=== PATIENT | female | born 1990 ===

== ENCOUNTER 2018-07-17 14:23 | Emergency (ER) | payer OTHER ==
[2018-07-17 14:37] VITALS: BP 152/91
--- NOTE | 2018-07-17 14:57 | UC ---
Respiratory Complaint HPI - HPI Summary HPI Summary: The patient is a 27-year-old female that is been ill for about 4 days. She initially started with nasal congestion and facial pressure and pain, as well as postnasal drip. In the past 24 hour she has developed a fever as well as headache and myalgias. Denies any chest pain or shortness of breath. Denies any earache. - History of Current Complaint Chief Complaint: UCRespiratory Stated Complaint: CONGESTION,FEVER Time Seen by Provider: 07/17/18 14:39 Hx Obtained From: Patient Hx Last Menstrual Period: 07/17/18 Onset/Duration: Gradual Onset, Lasting Days Timing: Constant Severity Initially: Mild Severity Currently: Moderate Pain Intensity: 4 Pain Scale Used: 0-10 Numeric Character: Cough: Nonproductive Alleviating Factors: Nothing Associated Signs And Symptoms: Positive: Fever, Chills, URI, Nasal Congestion, Sinus Discomfort - Allergies/Home Medications Allergies/Adverse Reactions: Allergies Allergy/AdvReac Type Severity Reaction Status Date / Time cefuroxime [From Ceftin] Allergy Mild Rash Verified 07/17/18 14:37 PMH/Surg Hx/FS Hx/Imm Hx Previously Healthy: Yes Respiratory History: Pneumonia - Family History Known Family History: Negative: Cardiac Disease, Hypertension, Diabetes - Social History Alcohol Use: None Substance Use Type: None Smoking Status (MU): Never Smoked Tobacco Review of Systems All Other Systems Reviewed And Are Negative: Yes Constitutional: Positive: Fever, Chills, Fatigue Skin: Positive: Negative Eyes: Positive: Negative ENT: Positive: Ear Ache, Nasal Discharge, Sinus Congestion, Sinus Pain/ Tenderness Respiratory: Positive: Cough Cardiovascular: Positive: Negative Gastrointestinal: Positive: Negative Genitourinary: Positive: Negative Motor: Positive: Negative Neurovascular: Positive: Negative Musculoskeletal: Positive: Negative Neurological: Positive: Negative Psychological: Positive: Negative Physical Exam Triage Information Reviewed: Yes Appearance: Well-Appearing, No Pain Distress, Well-Nourished Vital Signs: Initial Vital Signs Temp 99.4 F 07/17/18 14:29 Pulse 96 07/17/18 14:29 Resp 16 07/17/18 14:29 BP 152/91 07/17/18 14:29 Pulse Ox 100 07/17/18 14:29 Vital Signs Reviewed: Yes Eyes: Positive: Conjunctiva Clear ENT: Positive: Hearing grossly normal, Pharyngeal erythema, Sinus tenderness, Uvula midline. Negative: Nasal congestion, Nasal drainage, Tonsillar swelling, Trismus, Muffled voice, Hoarse voice Neck: Positive: Supple, Nontender, No Lymphadenopathy Respiratory: Positive: Lungs clear, Normal breath sounds, No respiratory distress, No accessory muscle use Cardiovascular: Positive: RRR, No Murmur Bowel Sounds: Positive: Present Musculoskeletal: Positive: ROM Intact, No Edema Neurological: Positive: Alert Psychological Exam: Normal Skin Exam: Normal UC Diagnostic Evaluation - Laboratory O2 Sat by Pulse Oximetry: 100 - normal/not hypoxic Diagnostic Studies Comment: influenza (-) Respiratory Course/Dx - Differential Dx/Diagnosis Provider Diagnosis: Acute sinusitis Discharge - Sign-Out/Discharge Documenting (check all that apply): Patient Departure All imaging exams completed and their final reports reviewed: No Studies - Discharge Plan Condition: Stable Disposition: HOME Patient Education Materials: Sinusitis (ED) Referrals: No Primary Care Phys,NOPCP [Primary Care Provider] - - Billing Disposition and Condition Condition: STABLE Disposition: Home
[2018-07-17 15:06] LABS: Influenza A Molecular NEGATIVE (Negative); Influenza B Molecular NEGATIVE (Negative)
== END 2018-07-17 15:20 | disposition home or self-care (01) ==
LOC: UCEAST 14:23
DX: J01.90 Acute sinusitis, unspecified (principal); Z88.1 Allergy status to other antibiotic agents
CPT/HCPCS: 99202; G0463

== ENCOUNTER 2018-09-13 16:20 | Emergency (ER) | payer OTHER ==
[2018-09-13 16:30] VITALS: BP 124/77
--- NOTE | 2018-09-13 16:43 | ED ---
Throat Pain/Nasal Congestion - HPI Summary HPI Summary: 28-year-old female presents with sore throat for the past couple days. She admits to sinus congestion and ear pressure and headache. She notes occasional cough. No nausea vomiting. No abdominal pain. No chest pain or shortness breath. She has a history of strep. Has no medical conditions. Has been taking ibuprofen for fevers. She states occasional fever. - History of Current Complaint Chief Complaint: UCRespiratory Time Seen by Provider: 09/13/18 16:33 - Allergies/Home Medications Allergies/Adverse Reactions: Allergies Allergy/AdvReac Type Severity Reaction Status Date / Time cefuroxime [From Ceftin] Allergy Mild Rash Verified 09/13/18 16:30 Home Medications: Home Medications Ibuprofen [Advil] 400 mg PO ONCE PRN 09/13/18 [History Confirmed 09/13/18] guaiFENesin [Mucinex] 1,200 mg PO ONCE PRN 09/13/18 [History Confirmed 09/13/18] PMH/Surg Hx/FS Hx/Imm Hx Endocrine/Hematology History: Denies: Hx Anticoagulant Therapy Respiratory History: Denies: Hx Asthma Infectious Disease History: No Infectious Disease History: Denies: Traveled Outside the [place] in Last 30 Days - Family History Known Family History: Negative: Cardiac Disease, Hypertension, Diabetes - Social History Alcohol Use: None Substance Use Type: Reports: None Smoking Status (MU): Never Smoked Tobacco Review of Systems Positive: Fever Positive: Sore Throat, Ear Ache, Nasal Discharge Negative: Chest Pain Negative: Shortness Of Breath, Cough Negative: Abdominal Pain All Other Systems Reviewed And Are Negative: Yes Physical Exam Triage Information Reviewed: Yes Vital Signs On Initial Exam: Initial Vitals Temp Pulse Resp BP Pulse Ox 98.7 F 105 18 124/77 100 09/13/18 16:27 09/13/18 16:27 09/13/18 16:27 09/13/18 16:27 09/13/18 16:27 Vital Signs Reviewed: Yes Appearance: Positive: Well-Appearing Skin: Positive: Warm, Dry Head/Face: Positive: Normal Head/Face Inspection Eyes: Positive: Normal, Conjunctiva Clear ENT: Positive: Normal ENT inspection, Pharyngeal erythema, TMs normal, Trismus, Muffled voice, Uvula midline, Other - soft pallate symmetric. Negative: Tonsillar swelling, Tonsillar exudate Respiratory/Lung Sounds: Positive: Clear to Auscultation, Breath Sounds Present Cardiovascular: Positive: Normal, RRR Abdomen Description: Positive: Nontender, Soft Bowel Sounds: Positive: Present Musculoskeletal: Positive: Normal Neurological: Positive: Normal Psychiatric: Positive: Normal Diagnostics - Vital Signs Vital Signs Temp Pulse Resp BP Pulse Ox 09/13/18 16:27 98.7 F 105 18 124/77 100 - Laboratory Lab Statement: Any lab studies that have been ordered have been reviewed, and results considered in the medical decision making process. EENT Course/Dx - Course Course Of Treatment: 28-year-old female presents with sore throat for the past couple days. She admits to sinus congestion and ear pressure and headache. She notes occasional cough. No nausea vomiting. No abdominal pain. No chest pain or shortness breath. She has a history of strep. Has no medical conditions. Has been taking ibuprofen for fevers. She states occasional fever. On exam pharynx erythematous. Uvula midline. Soft palate symmetric. Strep negative. We'll treat supportively with steriod. Patient understands agrees plan. - Differential Diagnoses Differential Diagnoses: Pharyngitis, Tonsilitis, URI/Bronchitis - Diagnoses Provider Diagnoses: Pharyngitis Discharge - Sign-Out/Discharge Documenting (check all that apply): Patient Departure All imaging exams completed and their final reports reviewed: No Studies - Discharge Plan Condition: Good Disposition: HOME Prescriptions: Dexamethasone TAB* [Decadron TAB*] 4 mg PO DAILY #5 tab Patient Education Materials: Pharyngitis (ED) Referrals: [facility] [Outside] Additional Instructions: Take steroid once a day for 5 days Take Tylenol or ibuprofen for pain every 6 hours Can gargle salt water Can use cough drops or products such as cloraseptic spray Establish care with primary care physician Return to ED if develop any new or worsening symptoms - Billing Disposition and Condition Condition: GOOD Disposition: Home - Attestation Statements Provider Attestation: I was available for consult. This patient was seen by the CYN[facility]IA. The patient was not presented to, seen by, or examined by me. -Jm
== END 2018-09-13 17:00 | disposition home or self-care (01) ==
LOC: UCEAST 16:20
DX: J02.9 Acute pharyngitis, unspecified (principal); Z88.1 Allergy status to other antibiotic agents
CPT/HCPCS: 87651; 99212; G0463